=== PATIENT | male | born 1945 | race Caucasian/White ===

== ENCOUNTER → 2018-04-15 18:25 | Outpatient (CLI) | payer SELFPAY | END | disposition home or self-care (01) | LOC: D.LABREF 18:25 | DX: D72.829 Elevated white blood cell count, unspecified (principal) ==

== ENCOUNTER 2018-05-07 06:38 | Day surgery (SDC) | payer OTHER ==
[~2018-05-07] VITALS: Ht 175.3 cm; Wt 72.6 kg
[~2018-05-07 06:38] MED LIST: DETROL LA4 MG; GLUCOPHAGE500 MG; GLUCOTROL 5 MG T5 MG; LISINOP/HCTZ TAB 20-; NORVASC10 MG
[2018-05-07 07:18] LABS: HEMATOCRIT 41.4 % (42.0-54.0); HEMOGLOBIN 13.8 g/dL (13.5-17.5); MCH 29.8 pg (26.0-34.0); MCHC 33.3 g/dL (31.0-37.0); MCV 89.4 fL (80.0-100.0); MEAN PLATELET VOLUME 11.5 fL (7.4-10.4); RBC 4.63 10x6/uL (4.20-6.10); WBC 5.6 10x3/uL (4.8-10.8)
[2018-05-07 07:19] LABS: ANION GAP 11.7 mmol/L (8-16); CALCIUM 10.3 mg/dL (8.5-10.1); CARBON DIOXIDE 30.3 mmol/L (21.0-32.0); CREATININE - SERUM 1.2 mg/dL (0.6-1.3)
[2018-05-07 07:40] VITALS: BP 138/72; Ht 175.3 cm; Wt 72.6 kg
--- NOTE | 2018-05-07 09:45 | NUR ---
REC'D FROM SURGERY. FAMILY AT BEDSIDE. FL TRAY BROUGHT TO PT.
--- NOTE | 2018-05-07 09:55 | NUR ---
UP TO BATHROOM AND VOIDED.
--- NOTE | 2018-05-07 10:15 | NUR ---
TOLERATED DIET. PT C/O INABILITY TO VOID. DR JOHNSTON NOTIFIED. ORDERED FOR BLADDER SCAN.
--- NOTE | 2018-05-07 10:34 | OP ---
PATIENT NAME: OC HUNG MEDICAL RECORD: [id number] :45 LOCATION:[facility] ADMISSION DATE: SURGEON: BARRY JOHNSTON MD DATE OF OPERATION: 05/07/2018 SURGEON: Barry Johnston MD ANESTHESIA: TIVA by CLIFF Ramirez CRNA DIAGNOSIS: Obstructive benign prostatic hyperplasia with incomplete bladder emptying. FINDINGS: A 50 gram prostate on RYAN. IPSS score is 21. Quality of life score is 5. Postvoid residual is 138 mL. On cystoscopy, there is bilateral lateral lobe hyperplasia with the left lobe being much larger than the right side. Single ureteral orifices on each side of the bladder. Trabeculated bladder with no bladder tumors. PROCEDURE: Cystoscopy with UroLift x5 units attempted, 4 units held in position. BLOOD LOSS: Minimal. CLINICAL HISTORY: This is a 72-year-old male, who has a complaint of urinary frequency with urge incontinence for 2 years. He was seen at the [facility] and they gave him Flomax, but there was no benefit from the medication. Currently, he is being treated with Detrol and Myrbetriq, which is not helping. He has to void 10 times a day with nocturia times 2. He has a very weak urine flow, but no postvoid dribbling. When we checked him in the office, he had a postvoid residual of 138. His IPSS scores were high with IPSS score of 21 and quality of life score of 5. I feel that he has quite significant BPH. On rectal examination, he has a 50 gram prostate. He comes today for the UroLift procedure. He is not allergic to any medications. He was given Ancef simulation developer to the OR. DESCRIPTION OF PROCEDURE: The patient was given IV sedation. He was then placed in the dorsal lithotomy position and prepped and draped. Using the scope, we found no penile urethral strictures. He has quite enlarged lateral lobes bilaterally. The left one was especially large and crosses over the midline to appose the opposite lateral lobe. We performed the UroLift placements on the right side first. The proximal unit was placed about 2 cm distal to the bladder neck. This was in the anterior lateral urethra. The distal unit was placed at the level of the verumontanum. As the prostatic urethra was actually relatively short, these were slightly overlapped and staggered by having the distal one being in a slightly left anterior plane then the more proximal one. Then, the left verumontanum unit was placed by being placed in the left anterior lateral urethra. Finally, we tacked all the very large left bladder neck region BPH tissue. The first unit that we fired here did not have the clip hold. We fired another unit and the clip did hold this time. He has a wide-open urethra at the end of the procedure. The bladder was emptied through the scope and then the scope was removed. I will see the patient in followup in 1 months' time. TRANSINT:[id number] Voice Confirmation ID: [id number] DOCUMENT ID: [id number] OPERATIVE REPORT [id number] OC HUNG, BARRY Lew MD at 1034 CC: [id number] DICTATION DATE: 05/07/18940 GEOSPATIAL APPLICATIONS DEVELOPER: 05/07/18 1030 [facility] [address] [place] [address]
--- NOTE | 2018-05-07 10:35 | NUR ---
URINE RESIDUAL OF 312 ML.
--- NOTE | 2018-05-07 11:00 | NUR ---
DR JOHNSTON INFORMED OF BLADDER SCAN RESULTS. ORDERED FOR NEWSOME CATH BE PLACED AND DC HOME WITH CATHETER.
--- NOTE | 2018-05-07 11:30 | NUR ---
16 FR NEWSOME CATHETER PLACED USING STERILE TECHNIQUE. WRITTEN AND VERBAL DC INST. GIVEN TO PT. DEMONSTRATED PROCEDURE FOR CHANGING NEWSOME TO LEG BAG DRAINAGE. VERBALIZED UNDERSTANDING. IV DC'D WITH CATHETER INTACT.
--- NOTE | 2018-05-07 11:45 | NUR ---
DC'D HOME WITH FAMILY VIA PRIVATE VEHICLE. TAKEN TO VEHICLE VIA WC. STABLE AT TIME OF DC.
== END 2018-05-07 11:45 | disposition home or self-care (01) ==
LOC: D.OPS 06:38 → D.PAN 09:00 → D.OPS 09:30 → D.PAN 09:30 → D.OPS 11:45
PROVIDERS: Anesthesiology
DX: N40.1 Benign prostatic hyperplasia with lower urinary tract symptoms (principal); N13.8 Other obstructive and reflux uropathy; R39.14 Feeling of incomplete bladder emptying

== ENCOUNTER → 2018-08-24 11:03 | Outpatient (CLI) | payer OTHER ==
[2018-05-07 07:40] VITALS: BMI 23.6
== END | disposition home or self-care (01) ==
LOC: D.MRI 11:03
PROVIDERS: ATTEND Family Medicine
DX: M48.07 Spinal stenosis, lumbosacral region (principal)

== ENCOUNTER 2019-06-10 07:55 | Day surgery (SDC) | payer OTHER ==
[2019-06-08 11:01] LABS: HEMOGLOBIN 14.2 g/dL (13.5-17.5); MCH 30.1 pg (26.0-34.0); MCHC 33.8 g/dL (31.0-37.0); MEAN PLATELET VOLUME 10.9 fL (7.4-10.4); RBC 4.72 10x6/uL (4.20-6.10); RDW 13.7 % (11.5-14.5); WBC 6.3 10x3/uL (4.8-10.8)
[2019-06-08 11:09] LABS: ANION GAP 10.7 mmol/L (8-16); CALCIUM 10.6 mg/dL (8.5-10.1); CARBON DIOXIDE 34.2 mmol/L (21.0-32.0); CREATININE - SERUM 1.3 mg/dL (0.6-1.3); POTASSIUM - SERUM 3.9 mmol/L (3.5-5.1)
[~2019-06-10] VITALS: Ht 175.3 cm; Wt 70.3 kg
[~2019-06-10 07:55] MED LIST changes: +TRAZODONE TAB 50M PO
[2019-06-10 08:59] VITALS: BP 134/70; Ht 175.3 cm; Wt 70.3 kg
--- NOTE | 2019-06-10 11:05 | NUR ---
1037-REC'D FROM SURGERY. AWAKE AND ALERT. VSS. DENIES PAIN. NEWSOME PATENT DRAINING RED URINE, WITHOUT CLOTS, BY GRAVITY. IV PATENT TO RIGHT ARM AT KVO. REVIEWED DISCHARGE CRITERIA. CL IN EASY REACH. SPOUSE AT BEDSIDE.
--- NOTE | 2019-06-10 11:07 | NUR ---
1100-FULL LIQUID TRAY TO ROOM. NO CHANGES. AWAKE,ALERT AND PLEASANT
--- NOTE | 2019-06-10 14:05 | NUR ---
1130-TOLERATED FOOD TRAY. DENIES PAIN. VSS. REMOVED IV FROM RIGHT ARM WITH CATH INTACT,DISPOSED INTO SHARPS. COVERED SITE WITH GUAZE,COVERED WITH GUAZE,SECURED WITH MEDIPORE TAPE.
--- NOTE | 2019-06-10 14:07 | NUR ---
1140-REVIEWED POST OPERATIVE INSTRUCTIONS AND FOLLOW UP APPOINTMENT. VERBALIZED UNDERSTANDING.
--- NOTE | 2019-06-10 14:10 | NUR ---
1145-OUT VIA W/C WITH SPOUSE AWAITING TO DRIVE HOME.
--- NOTE | 2019-06-10 15:36 | OP ---
PATIENT NAME: OC HUNG MEDICAL RECORD: [id number] :45 LOCATION:[facility] ADMISSION DATE: SURGEON: BARRY JOHNSTON MD DATE OF OPERATION: 06/10/2019 SURGEON: Barry Johnston MD ANESTHESIA: TIVA by Wilbur Torres CRNA. DIAGNOSIS: Obstructive benign prostatic hypertrophy. PROCEDURE: UroLift times 4, all units placed along left lateral lobe of the prostate. One unit was placed in the bladder neck level, two at the mid prostatic urethra, and one at the verumontanum level. FINDINGS: Residual prostatic obstruction from overhanging tissue in the anterior and left lateral lobe of the prostate. ESTIMATED BLOOD LOSS: Minimal. CLINICAL HISTORY: This is a 74-year-old male who had problems with obstructive BPH. He had a UroLift procedure in April of 2018 when 5 units were deployed and 4 units held. He has a 50 gram prostate on RYAN. He had issues with nocturia and slow urinary flow. He was not completely satisfied with his outcome from his 2019 procedure. His IPSS was 16. Quality of life was 3. He comes now to have the UroLift procedure repeated. Most likely, he has some residual persistent obstruction. He was given Levaquin IV excavation laborer to the OR. DESCRIPTION OF PROCEDURE: The patient was given IV sedation. He was placed in the lithotomy position and prepped and draped. Going with the UroLift scope, there are no penile urethral strictures. There is still obstruction from a large left lateral lobe and overhanging anterior tissue at the bladder neck level. I started by placing 1 unit at the anterior hanging tissue, 1.5 cm distal to the bladder neck at the anterolateral sulcus. This helped to pin this part of it away. Then, the mid prostatic urethra was obstructed by the left lateral lobe. One unit was placed at the left anterolateral sulcus and another unit was placed at the mid urethral height going from anterior to posterior distance. This left remaining bowel to the verumontanum. The apex of the bulge was pinned with 1 more UroLift unit in the left mid urethra. Now, we have a wide open prostatic urethral channel. There was a bit of bleeding from the placement of the UroLift units and therefore I decided to place a Coley catheter. This went in without any resistance. The Coley balloon was inflated with 10 cc of sterile water. I will see the patient in followup next week to have the Coley catheter removed for a voiding trial. TRANSINT:[id number] Voice Confirmation ID: [id number] DOCUMENT ID: [id number] OPERATIVE REPORT [id number] OC HUNG ROBERT S MD at 1536 CC: [id number] DICTATION DATE: 06/10/19 1041 DENTIST ATTENDANT: 06/10/19 1532 [facility] 06/10/19 [place] [id number]
== END 2019-06-10 11:45 | disposition home or self-care (01) ==
LOC: D.OPS 07:55
PROVIDERS: Anesthesiology; ATTEND Urology
DX: N40.1 Benign prostatic hyperplasia with lower urinary tract symptoms (principal); I10 Essential (primary) hypertension; E11.9 Type 2 diabetes mellitus without complications; R39.14 Feeling of incomplete bladder emptying

== ENCOUNTER 2019-07-01 07:30 | Day surgery (SDC) | payer OTHER ==
[2019-06-29 11:02] LABS: ANION GAP 8.3 mmol/L (8-16); CALCIUM 10.7 mg/dL (8.5-10.1); CARBON DIOXIDE 33.1 mmol/L (21.0-32.0); CREATININE - SERUM 1.1 mg/dL (0.6-1.3); POTASSIUM - SERUM 3.4 mmol/L (3.5-5.1)
[2019-06-29 11:39] LABS: HEMATOCRIT 42.6 % (42.0-54.0); HEMOGLOBIN 14.2 g/dL (13.5-17.5); MCH 30.4 pg (26.0-34.0); MCHC 33.3 g/dL (31.0-37.0); MCV 91.2 fL (80.0-100.0); MEAN PLATELET VOLUME 10.9 fL (7.4-10.4); RBC 4.67 10x6/uL (4.20-6.10); RDW 13.6 % (11.5-14.5); WBC 7.4 10x3/uL (4.8-10.8)
[~2019-07-01] VITALS: Ht 180.3 cm; Wt 72.6 kg
--- NOTE | ~2019-07-01 | OP ---
PATIENT NAME: OC HUNG MEDICAL RECORD: [id number] :45 LOCATION:[facility] ADMISSION DATE: SURGEON: CLAUDY YOUNG MD DATE OF OPERATION: 07/01/2019 PREOPERATIVE DIAGNOSES: Severe lumbar spinal stenosis and bilateral foraminal stenosis at L3-L4. POSTOPERATIVE DIAGNOSES: Severe lumbar spinal stenosis and bilateral foraminal stenosis at L3-L4. PROCEDURE: Right L3-L4 lumbar laminectomy, medial facetectomy and foraminotomy with sublaminar decompression at L3-L4 using a METRx retractor. DESCRIPTION AND TECHNIQUE: After induction of general endotracheal anesthesia, the patient was rolled prone on the Michael frame. Lumbar spine was prepped and draped in usual sterile fashion. Fluoroscopic x-ray and spinal needle localized the L3-L4 interspace on the right side. Next, a 1:100,000 epinephrine with 1% lidocaine was used to infiltrate the subcutaneous tissues. A stab incision was created with a #11 blade. Series of dilators were used to advance a METRx retractor at L3-L4 interspace on the right side that was confirmed with fluoroscopic x-ray. A Midas Tanvir drill and microscope used to perform a laminectomy, medial facetectomy, and foraminotomy at L3-L4 on the right. Hypertrophied ligamentum flavum was removed with Cloward rongeurs. This decompressed the central dura as well as the L3 and L4 nerve roots on the right. The disc space was inspected and found to cause no significant nerve root compression. The retractor was tilted to the midline. The spinous process of L3 was undermined with Midas Tanvir drill. Hypertrophied ligamentum flavum was removed from the opposite side and opposite foramen under microscopic illumination with Cloward rongeurs. Following this, both nerve roots were decompressed at L3 and L4. Meticulous hemostasis was maintained throughout the wound. Wound was irrigated with copious amounts of Ancef irrigant solution. The fascia was closed with 2-0 Vicryl suture. Subdermal layer was closed with 3-0 Vicryl suture. The skin was closed with kenn. A sterile dressing was applied to the wound. The patient was awakened in good condition, taken to recovery. All counts were reported as correct. Estimated blood loss was minimal. TRANSINT:[id number] Voice Confirmation ID: [id number] DOCUMENT ID: [id number] CLAUDY YOUNG MD CC: [id number] DICTATION DATE: 08/09/19 08 CHILD STUDY TEAM DIRECTOR: 08/09/19 1104 [facility] 07/01/19 [place] [id number] [place] [address]
[~2019-07-01 07:30] MED LIST changes: +LISINOPRIL-HCT1 EAC8 PO; +TRAZODONE HCL150 MG PO; -TRAZODONE TAB 50M PO
[2019-07-01 07:46] VITALS: BP 143/73; Ht 180.3 cm; Wt 72.6 kg
--- NOTE | 2019-07-01 11:41 | NUR ---
PATIENT POSITIONED PRONE ON BACK FRAME ALL AREAS CHECKED SECURED AND PADDED, GENITALS CHECKED NO IMPINGEMENT, MARIN.
[2019-07-01] MEDS ORDERED: HYDROCODON-ACE1 EA10 PO (12:03)
--- NOTE | 2019-07-01 13:57 | NUR ---
1330-REMOVED IV WITH CATH INTACT. DISPOSED INTO SHARPS,COVERED WITH GUAZE,SECURED WITH MEDIPORE TAPE.
--- NOTE | 2019-07-01 13:58 | NUR ---
1340-DISCHARGE CRITERIA MET. VOIDED WITHOUT COMPLICATIONS. DRESSING TO BACK CDI. REVIEWED POST OPERATIVE INSTRUCTIONS AND FOLLOW UP APPOINTMENT. VERBALIZED UNDERSTANDING. ESCORTED OUT VIA W/C WITH SON DRIVING PT HOME.
== END 2019-07-01 13:45 | disposition home or self-care (01) ==
LOC: D.OPS 07:30 → D.PAN 09:30 → D.OPS 13:45
PROVIDERS: Anesthesiology; ATTEND Neurological Surgery
DX: M48.061 Spinal stenosis, lumbar region without neurogenic claudication (principal); E11.9 Type 2 diabetes mellitus without complications; I10 Essential (primary) hypertension; Z79.84 Long term (current) use of oral hypoglycemic drugs; M54.16 Radiculopathy, lumbar region